=== PATIENT | female | born 1950 | race Two or more races ===

== ENCOUNTER 2022-10-05 10:15 | Inpatient (IN) | payer OTHER ==
[~2022-10-05] VITALS: Ht 147.3 cm; Wt 49.4 kg
[2022-10-05] MEDS ORDERED: COZAAR100 MG PO (10:41)
[2022-10-05] MEDS ORDERED: HYDRALAZINE HCL10 MG PO (10:41)
[2022-10-05] MEDS ORDERED: TRIJARDY XR 121 EACH PO (10:41)
[2022-10-05] MEDS ORDERED: ATORVASTATIN CA40 MG PO (10:42)
[2022-10-05] MEDS ORDERED: CILOSTAZOL100 MG PO (10:43)
[2022-10-05] MEDS ORDERED: GABAPENTIN300 M2 PO (10:43)
[2022-10-05] MEDS ORDERED: LANTUS (10:44)
[2022-10-05] MEDS ORDERED: METOPR PO (10:49)
[2022-10-05] MEDS ORDERED: NASAL MIST126 ML (10:49)
[2022-10-09] MEDS ORDERED: METOPROLOL SUCC25 MG (08:06)
[2022-10-09] MEDS ORDERED: VITAMIN C WIT1000 MG (08:06)
[2022-10-09] MEDS ORDERED: COLACE100 MG PO (10:09)
[2022-10-09] MEDS ORDERED: NEURONTIN800 MG PO (10:10)
[2022-10-09] MEDS ORDERED: PERCOCET 5-3251 EACH PO (10:10)
[2022-10-09] MEDS ORDERED: AMOX-CLAV 875-1 EACH PO (10:10)
[2022-10-09] MEDS ORDERED: MEDROLPACK PO (10:10)
== END 2022-10-09 17:05 | disposition home or self-care (01) | DRG 517 ==
LOC: O/R 10-09 06:00 → SURH 10-09 10:15 → O/R 10-09 17:05
PROVIDERS: ADMIT Orthopaedic Surgery Orthopaedic Surgery of the Spine; ATTEND Orthopaedic Surgery Orthopaedic Surgery of the Spine
PROC: 0QB00ZZ Excision of Lumbar Vertebra, Open Approach (ICD-10-PCS; 2022-10-09)
PROC: 01NB0ZZ Release Lumbar Nerve, Open Approach (ICD-10-PCS; principal; 2022-10-09 11:10)
DX: M54.16 Radiculopathy, lumbar region (principal); M48.062 Spinal stenosis, lumbar region with neurogenic claudication; I10 Essential (primary) hypertension; E11.9 Type 2 diabetes mellitus without complications; E78.5 Hyperlipidemia, unspecified